=== PATIENT | male | born 2000 | race Caucasian/White ===

== ENCOUNTER 2019-07-16 14:03 | Emergency (ER) | payer SELFPAY ==
[~2019-07-16] VITALS: Ht 177.8 cm; Wt 60.0 kg
[2019-07-16] MEDS ORDERED: METOCLOPRAMIDE 5 MG/ML, 2ML IVPush ONE (15:00)
[2019-07-16] MEDS ORDERED: SODIUM CHLORIDE FLUSH 10ML SYR IVF ONE (15:00)
[2019-07-16] MEDS ORDERED: PLEASE ENTER ALLERGIES MC SCH (15:30)
[2019-07-16 15:48] VITALS: BP 98/62
== END 2019-07-16 17:12 | disposition home or self-care (01) ==
LOC: ED 16:32
DX: J32.0 Chronic maxillary sinusitis (principal); R51 Headache; F17.200 Nicotine dependence, unspecified, uncomplicated
CPT/HCPCS: 70450; 99284